=== PATIENT | female | born 1980 | race Caucasian/White ===

== ENCOUNTER 2016-06-18 16:34 | Emergency (ER) | payer BC ==
[~2016-06-18 16:34] MED LIST: CIP5 PO; ESTRACE1 MG PO; IBU-200200 MG PO; NORCO1 TA1 PO; T PO
== END 2016-06-18 16:45 | disposition home or self-care (01) ==
LOC: ER 16:34
DX: K04.7 Periapical abscess without sinus (principal); F17.200 Nicotine dependence, unspecified, uncomplicated; Z88.5 Allergy status to narcotic agent; Z88.1 Allergy status to other antibiotic agents; Z88.8 Allergy status to other drugs, medicaments and biological substances; Z79.899 Other long term (current) drug therapy
CPT/HCPCS: 96372; 99284